=== PATIENT | male | born 1970 | race American Indian/Alaskan Native ===

== ENCOUNTER 2021-03-18 09:56 | Emergency (ER) | payer MEDICAID ==
[2021-03-18] MEDS ORDERED: Sodium Chloride 0.9% 1,000 ML IV ONE (10:43)
[2021-03-18] MEDS ORDERED: Sodium Chloride 0.9% 2.5 ML Syringe FLUSH PRN (10:43)
[2021-03-18] MEDS ORDERED: Sodium Chloride 0.9% 10 ML Syringe FLUSH PRN (10:43)
[2021-03-18] MEDS ORDERED: Diphtheria,Pertussis(Acell),Tetanus Vaccine 0.5 ML Syringe IM ONE (10:44)
[2021-03-18] MEDS ORDERED: Iopamidol 755 MG/ML 500 ML Multipack Bottle IVPUSH ONE (10:45)
[2021-03-18 10:58] LABS: BLOOD UREA NITROGEN,BUN 26 mg/dL (7.0-18.0); CARBON DIOXIDE,CO2 23.2 mmol/L (21.0-32.0); CHLORIDE,CL 112 mmol/L (98-107); GLUCOSE RANDOM 109 mg/dL (74-106); POTASSIUM,K 4.1 mmol/L (3.5-5.1); SODIUM,NA 148 mmol/L (136-148)
--- NOTE | 2021-03-18 11:19 | CT ---
For Patients: As a result of the Century Cures Act, medical imaging exams and procedure reports are released immediately into your electronic medical record. You may view this report before your referring provider. If you have questions, please contact your health care provider. INDICATION: Trauma. Technique: Non-contrast head CT scan. Findings: No abnormal foci of altered attenuation in the brain parenchyma. No midline shift or mass effect. No hydrocephalus. No abnormal extra-axial fluid collections. No abnormalities identified in the visualized portions of the paranasal sinuses, skull, and scalp. Impression: No evidence of acute intracranial abnormalities. Please note that all CT scans at this facility use dose modulation, iterative reconstruction, and/or weight-based dosing when appropriate to reduce radiation dose to as low as reasonably achievable. Dictated by: Ned Rojas MD @ 03/18/2021 11:17:13 (Electronically Signed)
--- NOTE | 2021-03-18 11:23 | CT ---
INDICATION: Trauma. TECHNIQUE: CT scan of the abdomen and pelvis with 100 cc of Isovue-370 given intravenously. FINDINGS: The lung bases show mild dependent atelectasis. No focal abnormalities identified in the visualized portions of the liver, spleen, pancreas, adrenal glands, and kidneys. No hydronephrosis. No obstructing uroliths. The GI tract is incompletely distended but shows no gross abnormalities. Normal appendix. No retroperitoneal, pelvic sidewall, or mesenteric adenopathy. No fractures identified. IMPRESSION: 1. No acute abnormalities of the abdomen or pelvis identified. Please note that all CT scans at this facility use dose modulation, iterative reconstruction, and/or weight-based dosing when appropriate to reduce radiation dose to as low as reasonably achievable. Dictated by Ned Rojas MD @ 03/18/2021 11:21:[address] Ned Rojas @ Mar 18 2021 11:21AM
--- NOTE | 2021-03-18 11:25 | CR ---
INDICATION: Trauma. FINDINGS: Three views of the left hand show no evidence of acute fracture or dislocation. No other bony or soft tissue abnormalities identified. Dictated by Ned Rojas MD @ 03/18/2021 11:25:[address] Ned Rojas @ Mar 18 2021 11:25AM
--- NOTE | 2021-03-18 11:27 | CR ---
INDICATION: Trauma. FINDINGS: Four views of the right hand show no evidence of acute fracture or dislocation. No other bony or soft tissue abnormalities identified. Dictated by Ned Rojas MD @ 03/18/2021 11:26:[address] Ned Rojas @ Mar 18 2021 11:26AM
--- NOTE | 2021-03-18 11:27 | CT ---
Indication: Trauma Technique: Contrast enhanced chest CT Comparison: No comparison Findings: The heart size is normal. Normal caliber thoracic aorta. No pericardial effusion. No pneumothorax is seen. Basilar mild atelectasis. No effusion. No acute fracture visualized. Impression: 1. No acute pulmonary findings. Minimal basilar atelectasis. Please note that all CT scans at this facility use dose modulation, iterative reconstruction, and/or weight-based dosing when appropriate to reduce radiation dose to as low as reasonably achievable. Dictated by Cammie Rojas MD @ 03/18/2021 11:26:[address] Cammie Rojas @ Mar 18 2021 11:26AM
--- NOTE | 2021-03-18 11:27 | CT ---
Indication: Trauma Technique: Noncontrast axial CT of the cervical spine with coronal and sagittal reformats are provided. Comparison: No prior studies available for comparison at this institution. Findings: Temporomandibular joint degenerative changes. The craniocervical junction is unremarkable. Degenerative grade 1 anterolisthesis at C7-T1 due to advanced facet arthrosis. Anterior osteophytes are present at C3-4, C4-5 and C5-6 and C6-7. Posterior disc osteophyte complexes at C4-5, C5-6, and C6-7. No fractures. No significant prevertebral or paraspinal soft tissue swelling. No prevertebral edema. Mild mucosal thickening in the right maxillary sinus. The lung apices are clear. C1-2: No spinal canal stenosis. The head is rotated to the right. C2-3: No spinal canal stenosis or neural foramina narrowing. C3-4: No spinal canal stenosis or neural foramina narrowing. C4-5: Disc osteophyte complex results in mild spinal canal narrowing. Mild neural foraminal narrowing due to uncovertebral spurring and facet arthrosis. C5-6: Posterior disc osteophyte complex results in mild spinal canal narrowing. Mild neural foraminal narrowing on the right due to uncovertebral spurring. C6-7: Posterior disc osteophyte complex results in mild spinal canal narrowing. Mild neural foraminal narrowing due to uncovertebral spurring. C7-T1: Grade 1 anterolisthesis. Advanced facet arthrosis. Impression : 1. No evidence of acute osseous abnormality. 2. Multilevel cervical spondylitic changes. Please note that all CT scans at this facility use dose modulation, iterative reconstruction, and/or weight-based dosing when appropriate to reduce radiation dose to as low as reasonably achievable. Dictated by Rick Sanches MD @ 03/18/2021 11:26:[address] Rick Sanches @ Mar 18 2021 11:26AM
--- NOTE | 2021-03-18 11:33 | CT ---
Indication: Back pain, trauma Technique: Noncontrast axial CT of the lumbar spine with coronal and sagittal reformats are provided. Comparison: No prior studies are available for comparison at this institution. Findings: Lumbar alignment is within normal limits. No fracture. Anterior osteophytic spurring at L5-S1, L1-2 and in the lower thoracic spine. Vacuum disc phenomenon and moderate interspace narrowing at L5-S1. T11-12: No spinal canal stenosis or neural foramina narrowing. T12-L1: No spinal canal stenosis or neural foramina narrowing. L1-2: Mild disc space narrowing. No spinal canal stenosis or neural foraminal narrowing. L2-3: No spinal canal stenosis or neural foramina narrowing. L3-4: No spinal canal stenosis or neural foramina narrowing. Mild circumferential disc bulge. L4-5: Circumferential disc bulge, advanced facet arthrosis and ligament with likely results in [id number] spinal canal stenosis. Mild to moderate bilateral neural foraminal narrowing. L5-S1: Severe interspace narrowing, vacuum disc phenomenon, circumferential disc bulge and moderate facet arthrosis. Moderate neural foraminal narrowing on the left. Sacroiliac joint degenerative changes. Impression : 1. No fractures. 2. Multilevel lumbar spondylosis. Please note that all CT scans at this facility use dose modulation, iterative reconstruction, and/or weight-based dosing when appropriate to reduce radiation dose to as low as reasonably achievable. Dictated by Rick Sanches MD @ 03/18/2021 11:31:[address] Rick Sanches @ Mar 18 2021 11:31AM
--- NOTE | 2021-03-18 11:36 | CT ---
Indication: Back pain, trauma Technique: Noncontrast axial CT of the thoracic spine with coronal and sagittal reformats are provided. Comparison: No prior studies available for comparison at this institution. Findings: The overall stature, alignment of the thoracic spine is within normal limits. No convincing evidence of suspicious bony fragments narrowing the central canal or neural foramina. Mild scattered degenerative changes of the thoracic spine. No spinal canal stenosis or neural foramen narrowing. Prevertebral and paraspinal soft tissues are within normal limits. Impression: 1. No convincing radiographic evidence of acute osseous injury. 2. Mild scattered degenerative changes of the thoracic spine. 3. No significant spinal canal stenosis or neural foramen narrowing. Please note that all CT scans at this facility use dose modulation, iterative reconstruction, and/or weight-based dosing when appropriate to reduce radiation dose to as low as reasonably achievable. Dictated by Rick Sanches MD @ 03/18/2021 11:34:[address] Rick Sanches @ Mar 18 2021 11:34AM
[2021-03-18] MEDS ORDERED: Bacitracin Oint 1 GM U/D Packet TOP ONE (12:33)
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
== END 2021-03-18 13:31 ==
LOC: MW.ED 09:56
DX: S61.412A Laceration without foreign body of left hand, initial encounter (principal); S20.212A Contusion of left front wall of thorax, initial encounter; S30.1XXA Contusion of abdominal wall, initial encounter; F15.90 Other stimulant use, unspecified, uncomplicated; I10 Essential (primary) hypertension; E11.9 Type 2 diabetes mellitus without complications; Z23 Encounter for immunization; V49.40XA Driver injured in collision with unspecified motor vehicles in traffic accident, initial encounter
CPT/HCPCS: 12002; 36415; 70450; 71260; 72125; 73130; 74177; 80053; 80307; 85025; 90471; 90715; 93005; 99285; J7030; Q9967; 72128-26; 72131-26